=== PATIENT | female | born 1970 | race Caucasian/White ===

== ENCOUNTER 2018-01-20 08:40 | Inpatient (IN) | payer OTHER ==
[~2018-01-20] VITALS: Ht 172.7 cm; Wt 90.7 kg
--- NOTE | ~2018-01-20 | PROC ---
[address] [address] PROCEDURE REPORT Name: ASHER BERRY Room: [address] IN ..#: [id number] Admission: 01/20/18 Attend Phys: Farhat Campa Discharge: Date of : 68 Report #: [id number] THIS REPORT FOR: //name// For GI report, please see the Provation report in Perceptive 7 content. By: [id number] Records Staff [facility] /AYUSH
[~2018-01-20 08:40] MED LIST: COVARYX TABLET1 EACH PO; LEXAPRO PO; LISINOPRIL-HCT1 EAC2 PO; SYNTHROID88 MCG PO; TOPAMAX 100 MG100 MG PO; ULTRAM50 MG PO
[2018-01-20 08:48] VITALS: BP 129/90
[2018-01-20 09:14] LABS: ABSOLUTE LYMPHOCYTES 2.1 thou/uL (0.8-5.3); ABSOLUTE MONOCYTES 0.6 thou/uL (0.0-1.2); ABSOLUTE NEUTROPHILS 8.2 thou/uL (1.6-8.1); BASOPHILS 0.4 %; EOSINOPHILS 0.1 %; HEMATOCRIT 27.7 % (37.0-47.0); HEMOGLOBIN 9.6 gm/dL (12.0-15.0); LYMPHOCYTES 19.4 %; MCH 30.4 pg (26.0-34.0); MCHC 34.5 g/dL (28.0-37.0); MCV 88.2 fL (80.0-100.0); MONOCYTES 5.1 %; MPV 7.6 fl. (7.2-11.1); NUCLEATED RBCS 0 /100WBC; PLATELET COUNT* 335 thou/uL (150-400); RBC 3.14 mil/uL (4.20-5.00); WBC 10.9 thou/uL (4.0-11.0)
[2018-01-20 09:21] LABS: CALCIUM 8.6 mg/dL (8.5-10.1); CREATININE 0.8 mg/dL (0.6-1.3); POTASSIUM 4.1 mmol/L (3.5-5.1)
[2018-01-20 09:27] LABS: ALBUMIN 3.8 g/dL (3.4-5.0); TOTAL BILIRUBIN 0.3 mg/dL (<0.1-1.0); TOTAL PROTEIN 6.9 g/dL (6.4-8.2)
[2018-01-20 10:33] LABS: URINE BILIRUBIN NEGATIVE (Negative); URINE BLOOD 3+ (Negative); URINE CLARITY CLEAR; URINE COLOR YELLOW; URINE GLUCOSE-RANDOM NEGATIVE (Negative); URINE KETONES TRACE (Negative); URINE LEUKOCYTES-REFLEX NEGATIVE (Negative); URINE NITRITE-REFLEX NEGATIVE (Negative); URINE PROTEIN NEGATIVE (Negative); URINE SPECIFIC GRAVITY <= 1.005 (1.005-1.030); URINE UROBILINOGEN 0.2 E.U./dl (0.2-1.0)
[2018-01-20 10:41] LABS: AMP/METHAMP Negative (Negative); BARBITURATES POSITIVE (Negative); BENZODIAZEPINES POSITIVE (Negative); COCAINE Negative (Negative); METHADONE Negative (Negative); OPIATES POSITIVE (Negative); PCP Negative (Negative); THC Negative (Negative)
[2018-01-20 10:42] LABS: MUCUS 0-3 Light strn/LPF (None Seen); SQUAMOUS >10 Many /LPF (0-3)
[2018-01-20 10:43] LABS: BACTERIA-REFLEX 1-9 Few /HPF (None Seen); CRYSTALS None Seen /LPF (None Seen); HYALINE CASTS 0-3 Few /LPF (None Seen); URINE WBC-REFLEX 0-5 Rare /HPF (0-5)
[2018-01-20 10:44] LABS: URINE RBC 3-10 Few /HPF (0-2)
--- NOTE | 2018-01-20 11:00 | NUR ---
PT'S BEDSIDE CAMODE HAS BEEN EMPTIED AND CLEANED TWICE. STOOL SAMPLE HAS BEEN SENT TO LAB. STOOL IS BROWN/RED.
[2018-01-20 12:15] VITALS: BP 127/82
[2018-01-20 12:57] VITALS: BP 134/75
--- NOTE | 2018-01-20 13:03 | NUR ---
PATIENT CAME TO THE FLOOR FROM THER ER VIA CART. VITAL SIGNS STABLE ON ROOM AIR. ADMISSION ASSESSMENT DONE, ROOM EDUCATION AND ORIENTATION DONE, QUESTIONS ANSWERED FOR PATIENT. CALL LIGHT IS IN REACH, WILL CONTINUE TO MONITOR.
[2018-01-20 16:00] VITALS: BP 125/84
--- NOTE | 2018-01-20 17:19 | NUR ---
PATIENT HAS BEEN ALERT AND ORIENTED SINCE ARRIVING TO THE FLOOR, VITAL SIGNS STABLE ON ROOM AIR. COMPLAINTS OF HEADACHE AND ABDOMINAL PAIN. IV FLUIDS AND PROTONIX RUNNING IN LEFT AC IV. FAMILY HAS BEEN AT BEDSIDE TODAY. CALL LIGHT IS IN REACH, WILL CONTINUE TO MONITOR.
[2018-01-20 19:30] VITALS: BP 133/74
[2018-01-21 00:05] VITALS: BP 133/74
--- NOTE | 2018-01-21 04:51 | NUR ---
PATIENT REMAINS ALERT AND ORIENTED X4 THROUGHOUT SHIFT. VITAL SIGNS STABLE ON ROOM AIR. TRANSFERRING AD BEBE TO THE BEDSIDE COMMODE FOR URGENCY. REPOSITIONING SELF IN BED. IV PATENT IN THE LEFT AC INFUSING AT 125 ML/HR. PAIN MANAGED WITH PO MEDICATION PER ORDERS. DENIES NAUSEA. NPO STATUS MAINTAINED THROUGHOUT SHIFT. HOURLY ROUNDING COMPLETE. CALL LIGHT WITHIN REACH. NURSING WILL CONTINUE TO MONITOR.
[2018-01-21 07:30] VITALS: BP 141/82
[2018-01-21 11:49] LABS: HEMATOCRIT 20.7 % (37.0-47.0); MCH 30.6 pg (26.0-34.0); MCHC 33.6 g/dL (28.0-37.0); MCV 90.9 fL (80.0-100.0); MPV 7.3 fl. (7.2-11.1); NUCLEATED RBCS 0 /100WBC; RBC 2.28 mil/uL (4.20-5.00); RDW-CV 13.4 % (10.5-14.5); WBC 6.9 thou/uL (4.0-11.0)
[2018-01-21 11:56] LABS: PLATELET COUNT* 221 thou/uL (150-400)
[2018-01-21 12:07] LABS: CALCIUM 8.4 mg/dL (8.5-10.1); CREATININE 0.6 mg/dL (0.6-1.3); POTASSIUM 3.4 mmol/L (3.5-5.1)
[2018-01-21 12:24] LABS: ABSOLUTE LYMPHOCYTES 1.6 thou/uL (0.8-5.3); ABSOLUTE MONOCYTES 0.1 thou/uL (0.0-1.2); ABSOLUTE NEUTROPHILS 5.2 thou/uL (1.6-8.1)
[2018-01-21 12:26] LABS: PLATELET ESTIMATE ADEQUATE
[2018-01-21 14:17] VITALS: BP 136/78; BP 141/85; BP 146/90; BP 150/98
[2018-01-21 16:00] VITALS: BP 150/98
[2018-01-21 17:11] VITALS: BP 136/78
--- NOTE | 2018-01-21 17:41 | NUR ---
ALERT AND ORIENTED X4. UP AD BEBE IN ROOM. IV IS PATENT AND INFUSING. PAIN BEING MANAGED WITH PO PAIN MEDICATION. NAUSEA BEING MANAGED WITH IV NAUSEA MEDICATION. PATIENT HAS BEEN HAVING BLOODY STOOL THROUGHOUT SHIFT. RECIEVED 1 UNIT OF BLOOD THIS EVENING. VSS ON ROOM AIR. HOURLY ROUNDS HAVE BEEN MAINTAINED THROUGHOUT SHIFT CALL LIGHT IS WITHIN REACH. NURSING WILL CONTINUE TO MONITOR.
[2018-01-21 20:30] VITALS: BP 142/81
--- NOTE | 2018-01-22 04:29 | NUR ---
PATIENT REMAINS ALERT AND ORIENTED X4 THROUGHOUT SHIFT. VITAL SIGNS STABLE ON ROOM AIR. IV PATENT IN THE LEFT FOREARM INFUSING AT 125 ML/HR. TRANSFERS TO BEDSIDE COMMODE BY HERSELF WITH STEADY GAIT. PAIN MANAGED WITH PO MEDICATION PER ORDERED. MAUSEA MANAGED WITH IV MEDICATION ORDERED. MAINTAINED REGULAR DIET THEN NPO FOR THE REST OF THE NIGHT. RESTING COMFORTABLY THROUGHOUT NIGHT. REPOSITIOING SELF IN BED. HOURLY ROUNDING COMPELTE. BED IN LOW POSITION. CALL LIGHT WITHIN REACH. NURSING WILL CONTINUE TO MONITOR.
[2018-01-22 04:39] LABS: ABSOLUTE EOSINOPHILS 0.1 thou/uL (0.0-0.7); ABSOLUTE LYMPHOCYTES 1.8 thou/uL (0.8-5.3); ABSOLUTE MONOCYTES 0.6 thou/uL (0.0-1.2); ABSOLUTE NEUTROPHILS 5.5 thou/uL (1.6-8.1); BASOPHILS 0.4 %; EOSINOPHILS 1.3 %; HEMATOCRIT 23.3 % (37.0-47.0); HEMOGLOBIN 7.9 gm/dL (12.0-15.0); LYMPHOCYTES 22.2 %; MCHC 33.9 g/dL (28.0-37.0); MCV 91.4 fL (80.0-100.0); MONOCYTES 7.3 %; MPV 7.2 fl. (7.2-11.1); NUCLEATED RBCS 0 /100WBC; PLATELET COUNT* 210 thou/uL (150-400); POLYS 68.8 %; RBC 2.55 mil/uL (4.20-5.00); RDW-CV 13.2 % (10.5-14.5)
[2018-01-22 08:30] VITALS: BP 140/97
[2018-01-22 09:21] LABS: CALCIUM 8.3 mg/dL (8.5-10.1); CREATININE 0.6 mg/dL (0.6-1.3); POTASSIUM 3.6 mmol/L (3.5-5.1)
[2018-01-22 12:31] VITALS: BP 140/97
[2018-01-22 13:16] VITALS: BP 152/87
--- NOTE | 2018-01-22 18:33 | NUR ---
ALERT AND ORIENTED X4. UP AD BEBE IN ROOM. IV IS PATENT AND INFUSING. PAIN BEING MANAGED WITH PO MEDICATION. NAUSEA BEING MANAGED WITH IV NAUSEA MEDICATION. EGD DONE TODAY, GI SIGNED OFF ON PATIENT. VSS ON ROOM AIR. HOURLY ROUNDS HAVE BEEN MAINTAINED WHILE ON UNIT. CALL LIGHT IS WITHIN REACH. NURSING WILL CONTINUE TO MONITOR.
[2018-01-22 20:15] VITALS: BP 161/92
[2018-01-22 23:51] VITALS: BP 143/92
--- NOTE | 2018-01-23 04:51 | NUR ---
PATIENT REMAINS ALERT AND ORERIENTED X4 THROUGHOUT SHIFT. VITAL SIGNS STABLE ON ROOM AIR. IV WAS PATENT BUT WAS DISCONTINUED BY PATIENT. CALLED FOR NEW OREDERS. PO MEDICATION ORDERED AND FLUID CANCELLED. TRANSFERS AD BEBE TO THE RESTROOM. MANGED PAIN WITH PO MEDICAIION PER ORDERS. MANAGED NAUSEA WITH PO MEDICATION PER ORDERS. REPOSITIONING SELF IN BED. TOLERATING REGULAR DIET. RESTING COMFORABLY THROUGHOUT NIGHT. BED IN LOW POSITION. CALL LIGHT WITHIN REACH. NURSING WILL CONTINUE TO MONITOR.
[2018-01-23 08:30] VITALS: BP 138/87
[2018-01-23 13:35] LABS: ABSOLUTE LYMPHOCYTES 1.7 thou/uL (0.8-5.3); ABSOLUTE MONOCYTES 0.7 thou/uL (0.0-1.2); ABSOLUTE NEUTROPHILS 5.9 thou/uL (1.6-8.1); BASOPHILS 0.5 %; EOSINOPHILS 0.5 %; HEMATOCRIT 25.7 % (37.0-47.0); HEMOGLOBIN 8.8 gm/dL (12.0-15.0); LYMPHOCYTES 20.1 %; MCH 31.6 pg (26.0-34.0); MCHC 34.3 g/dL (28.0-37.0); MCV 92.1 fL (80.0-100.0); MPV 6.8 fl. (7.2-11.1); NUCLEATED RBCS 0 /100WBC; PLATELET COUNT* 293 thou/uL (150-400); POLYS 70.9 %; RBC 2.79 mil/uL (4.20-5.00); RDW-CV 13.5 % (10.5-14.5); WBC 8.3 thou/uL (4.0-11.0)
[2018-01-23 15:26] VITALS: BP 138/87
--- NOTE | 2018-01-23 15:39 | NUR ---
ASSUMED CARES OF PT AT 0700. PT IN BED ASLEEP, BED IN LOW LOCKED POSITION. CALL BUTTON AND PERSONAL ITEMS IN PT REACH. PT A&O X4, HRRR PER AUSCULTATION, LCTAB, NO IV PRESENT. SKIN INTACT. PT UP INDEPENDENTLY. VSS ON RA. PT REPORTS HEADACHE AND NAUSEA, MEDICATIONS GIVEN. NO STOOLS THIS SHIFT. DR. VERA CLEARED/GI CLEARED PT FOR DISCHARGE. DISCHARGE EDUCATION GIVEN AND DOCUMENTS SIGNED. PT STATED SHE UNDERSTANDS D/C ORDERS. PERSONAL BELONGINGS PACKED, ROOM CHECKED. PT ESCORTED WITH NURSING STAFF VIA AMBULATION TO CAR TO GO HOME WITH SPOUSE. PT STABLE AT D/C. DISCHARGE COMPLETED AT 1535.
--- NOTE | 2018-01-26 08:54 | CON ---
[address] [address] CONSULTATION Name: ASHER BERRY Room: [address] IN ..#: [id number] Admission: 01/20/18 Attend Phys: Farhat Campa Discharge: 01/23/18 Date of : 68 Report #: [id number] THIS REPORT FOR: //name// CC: Haris Perez DICTATED BY: Clarisa Quintero [facility] DATE OF SERVICE: 01/21/2018 Please note at the time of this dictation, the patient was seen and physically examined by myself. REASON FOR CONSULTATION: GI bleed. HISTORY OF PRESENT ILLNESS: This is a 47-year-old female who presented to the Emergency Room with having some abdominal pain, and worsening of her nausea and vomiting, which she states was negative for any coffee ground emesis or bright red blood; however, she has been noticing melanotic stools for the last couple of days. She was in [facility] 2 weeks ago and underwent an EGD and she was told she had a small hiatal hernia, but otherwise it was negative. She does have a history of Josefa-en-Y gastric bypass back many years ago. She states prior to a couple of days ago, her stools were brown and normal in consistency without any problems. The patient does have a long history of taking significant amounts of ibuprofen 600 mg daily for her ongoing migraines that she has. ALLERGIES: VICODIN AND ACETAMINOPHEN. MEDICATIONS: From home include tablet, lisinopril, Synthroid, and Lexapro. PAST MEDICAL HISTORY: Hypertension, migraines, history of hernias and depression. Last EGD 2 weeks ago at [facility], we will obtain those records. Chronic nausea and vomiting. PAST SURGICAL HISTORY: Josefa-en-Y surgery, hysterectomy and ACL reconstruction. FAMILY HISTORY: Negative for any GI or female cancers. SOCIAL HISTORY: She denies any tobacco or illegal drug use, but she drinks 4 beers daily. REVIEW OF SYSTEMS: Twelve-point review of systems is essentially negative except what [place] [address] CONSULTATION Name: ASHER BERRY Room: [address]#: [id number] Admission: 01/20/18 Attend Phys: Farhat Campa Discharge: 01/23/18 Date of : 68 Report #: [id number] PHYSICAL EXAMINATION: VITAL SIGNS: Temperature 37.2, pulse 93, respirations 18, blood pressure 141/82. HEART: Regular rate and rhythm. LUNGS: Clear. ABDOMEN: Soft, positive bowel sounds in all 4 quadrants with tenderness noted in the epigastric area. LABORATORY DATA: Hemoglobin on admission was 9.6. She is down to 7 with hematocrit 27.7, white count is 10.9, platelets 335. Sodium 139, potassium 4.1, chloride 104, CO2 23, BUN is 31, creatinine is 0.8, platelets is 143. GFR is 77. C. diff was negative. Iron was 230, TIBC is 275. B12 274. Folate is 17.2. The patient did test positive for opioids, barbiturates, benzos and negative for any marijuana. CT of the abdomen and pelvis, normal liver, gallbladder is absent consistent with a history of gastric bypass surgery, otherwise negative. IMPRESSION: 1. Chronic nausea and vomiting. 2. Melenic stools. 3. Acute anemia. 4. Thrombocytopenia. 5. Chronic nonsteroidal antiinflammatory drug use. 6. Migraines question cyclical vomiting syndrome. 7. Alcohol misuse. PLAN: 1. EGD tomorrow with Dr. Romano. 2. Obtain records from [facility] regarding her previous EGD. 3. Continue her Protonix drip. 4. Type and cross the patient for 2 units and give her 1 now. 5. If EGD negative tomorrow, likely will need a small bowel capsule that will need to be placed due to her previous surgery. Thank you for allowing us to participate in this patient's care. Please do not hesitate to call with any questions in regard to this consult. ADDENDUM I have personally seen and examined the patient and reviewed labs and imaging. The patient with history of migraines who also has chronic NSAID use due to the same. She presented with melanotic stool and nausea and vomiting. She had upper scope two weeks ago, which was significant for Josefa-en-Y surgery, but otherwise negative for any kind of upper GI source of bleeding. Her hemoglobin since admission has dropped from 9.6 to 7.3. We will go ahead and perform an [address] [place] [address] CONSULTATION Name: ASHER BERRY Room: [address] IN M.R.#: [id number] Admission: 01/20/18 Attend Phys: Farhat Campa Discharge: 01/23/18 Date of : 68 Report #: [id number] upper scope and if this was negative, we will consider a capsule endoscopy and colonoscopy. Meanwhile, we will check iron, B12 and folic acid levels. <ELECTRONICALLY SIGNED> By: Alida Romano MD 01/26/18 0854 1211 1926Alida Romano MD /nt
--- NOTE | 2018-01-26 08:55 | CON ---
[address] [address] CONSULTATION Name: ASHER BERRY Room: [address] IN .R.#: [id number] Admission: 01/20/18 Attend Phys: Farhat Campa Discharge: 01/23/18 Date of : 68 Report #: [id number] THIS REPORT FOR: //name// CC: Haris Perez DATE OF SERVICE: 01/21/2018 ADDENDUM I have personally seen and examined the patient and reviewed labs and imaging. The patient with history of migraines who also has chronic NSAID use due to the same. She presented with melanotic stool and nausea and vomiting. She had upper scope two weeks ago, which was significant for Josefa-en-Y surgery, but otherwise negative for any kind of upper GI source of bleeding. Her hemoglobin since admission has dropped from 9.6 to 7.3. We will go ahead and perform an upper scope and if this was negative, we will consider a capsule endoscopy and colonoscopy. Meanwhile, we will check iron, B12 and folic acid levels. <ELECTRONICALLY SIGNED> By: Alida Romano MD 01/26/18 0855 1536 [id number] Romano MD /nt
--- NOTE | 2018-01-26 18:09 | PATH ---
[facility] [address] [place] [address] PATHOLOGY RPT PROCEDURE Name: MORIAH HUGHES Room: [address] IN ..#: [id number] Admission: 01/20/18 Date of : 68 Discharge: 01/23/18 Report #: [id number] Path Case #: [id number] [facility] Accession Number: [id number] . 01 Material submitted: . ANASTOMATIC ULCER BIOPSY . 01 Clinical history: . Gastric bypass surgery . 02 Diagnosis: Anastomotic ulcer biopsy: - Benign small intestinal and gastric types mucosa with minimal nonspecific chronic inflammation. (ENMANUEL:pamela; 01/23/2018) QMS/01/23/2018 . 02 Electronically signed: . Jeffrey Aleman MD, Pathologist NPI- [id number] . 01 Gross description: . Received in formalin labeled "Moriah Hughes, anastomotic ulcer biopsy," is a single segment of good soft tissue measuring 0.4 cm in maximum dimension. The specimen is submitted entirely in cassette A1. (TSD; 01/22/2018) TOB/TOB . 02 Pathologist provided ICD-10: K29.50 . 02 CPT . 975880 Performed at: [address], [place] [id number] MD Dereck Sosa MD Phone: [phone] Performed at: [address] [address] [place], [place] [id number] MD Jeffrey Aleman MD Phone: [phone]
== END 2018-01-23 15:35 | disposition home or self-care (01) | DRG 811 ==
LOC: M.ERS 08:40 → M.ORTHSURG 12:06 → M.TBA-ER 12:06 → M.ORTHSURG 12:20
PROVIDERS: Internal Medicine; Nurse Practitioner Adult Health; Personal Emergency Response Attendant; ADMIT Internal Medicine
PROC: 30233N1 Transfusion of Nonautologous Red Blood Cells into Peripheral Vein, Percutaneous Approach (ICD-10-PCS; principal; 2018-01-21)
PROC: 0DB68ZX Excision of Stomach, Via Natural or Artificial Opening Endoscopic, Diagnostic (ICD-10-PCS; 2018-01-22)
DX: D62 Acute posthemorrhagic anemia (principal); K25.0 Acute gastric ulcer with hemorrhage; I10 Essential (primary) hypertension; D69.6 Thrombocytopenia, unspecified; G43.801 Other migraine, not intractable, with status migrainosus; K44.9 Diaphragmatic hernia without obstruction or gangrene; Z90.710 Acquired absence of both cervix and uterus; Z88.6 Allergy status to analgesic agent; Z88.8 Allergy status to other drugs, medicaments and biological substances; Z79.1 Long term (current) use of non-steroidal anti-inflammatories (NSAID); Z79.899 Other long term (current) drug therapy

== ENCOUNTER 2018-06-05 16:10 | Emergency (ER) | payer OTHER ==
[~2018-06-05] VITALS: Ht 172.7 cm; Wt 97.5 kg
[2018-06-05] MEDS ORDERED: SEROQUEL 100 M100 M1 PO (16:21)
[2018-06-05] MEDS ORDERED: XANAX1 MG PO (16:21)
[2018-06-05] MEDS ORDERED: LYRICA 50 MG50 MG PO (16:21)
[2018-06-05 16:33] LABS: ABSOLUTE EOSINOPHILS 0.1 thou/uL (0.0-0.7); ABSOLUTE LYMPHOCYTES 1.8 thou/uL (0.8-5.3); ABSOLUTE MONOCYTES 0.5 thou/uL (0.0-1.2); ABSOLUTE NEUTROPHILS 2.4 thou/uL (1.6-8.1); BASOPHILS 0.6 %; EOSINOPHILS 2.4 %; HEMATOCRIT 28.3 % (37.0-47.0); HEMOGLOBIN 8.8 gm/dL (12.0-15.0); LYMPHOCYTES 36.2 %; MCH 23.8 pg (26.0-34.0); MCHC 31.3 g/dL (28.0-37.0); NUCLEATED RBCS 0 /100WBC; PLATELET COUNT* 374 thou/uL (150-400); POLYS 49.8 %; RBC 3.72 mil/uL (4.20-5.00); RDW-CV 23.7 % (10.5-14.5); WBC 4.9 thou/uL (4.0-11.0)
[2018-06-05 16:41] LABS: CALCIUM 8.2 mg/dL (8.5-10.1); CREATININE 0.9 mg/dL (0.6-1.3); POTASSIUM 3.8 mmol/L (3.5-5.1)
[2018-06-05 16:45] LABS: TOTAL BILIRUBIN 0.1 mg/dL (<0.1-1.0); TOTAL PROTEIN 5.8 g/dL (6.4-8.2)
[2018-06-05 16:50] LABS: SALICYLATE 3.3 mg/dL (2.8-20.0)
[2018-06-05 16:52] LABS: URINE BILIRUBIN NEGATIVE (Negative); URINE BLOOD NEGATIVE (Negative); URINE CLARITY CLEAR; URINE COLOR YELLOW; URINE GLUCOSE-RANDOM NEGATIVE (Negative); URINE KETONES NEGATIVE (Negative); URINE LEUKOCYTES-REFLEX NEGATIVE (Negative); URINE NITRITE-REFLEX NEGATIVE (Negative); URINE PROTEIN NEGATIVE (Negative); URINE SPECIFIC GRAVITY <= 1.005 (1.005-1.030); URINE UROBILINOGEN 0.2 E.U./dl (0.2-1.0)
[2018-06-05 16:57] LABS: ANISOCYTOSIS 1+; PLATELET ESTIMATE ADEQUATE
[2018-06-05 17:01] LABS: AMP/METHAMP Negative (Negative); BARBITURATES POSITIVE (Negative); BENZODIAZEPINES POSITIVE (Negative); COCAINE Negative (Negative); METHADONE Negative (Negative); OPIATES Negative (Negative); PCP Negative (Negative); THC Negative (Negative)
[2018-06-05 17:40] VITALS: BP 96/51
[2018-06-05] MEDS ORDERED: ZESTORETIC 10-1 EACH (22:03)
[2018-06-05] MEDS ORDERED: LEXAPRO 10 MG T10 M1 (22:05)
[2018-06-05] MEDS ORDERED: BUTALB-APAP-CA1 EACH PO (22:06)
[2018-06-05] MEDS ORDERED: ESTROGEN-METHY1 EAC3 (22:08)
[2018-06-05] MEDS ORDERED: REXULTI1 MG (22:09)
[2018-06-05] MEDS ORDERED: ONDANSETRON HCL4 M2 (22:10)
[2018-06-05] MEDS ORDERED: PROTONIX 20 MG20 M1 PO (22:11)
--- NOTE | 2018-06-06 10:16 | EKG ---
[place] [address] ELECTROCARDIOGRAM REPORT Name: ASHER BERRY Room: [facility]#: [id number] Admission: 06/05/18 Attend Phys: Discharge: 06/05/18 Date of : 68 Report #: [id number] THIS REPORT FOR: //name// [facility] ED Test Date: 2018-06-05 Test Time: 16:17:54 Pat Name: ASHER BERRY Department: Room: Gender: F Posting Specialist: Benson CURRY : 1970 Requested By: Shukri Banks Order Number: [id number] MD: Cesar Arthur Measurements Intervals [place] Rate: 62 P: 2 MA: 159 QRS: 0 QRSD: 108 T: 24 QT: 495 QTc: 503 Interpretive Statements Sinus rhythm Borderline prolonged QT interval No previous ECG available for comparison Electronically Signed On 06-06-2018 10:16:30 CDT by Cesar Arthur [email or web address] <ELECTRONICALLY SIGNED> By: Cesar Arthur MD, [facility] 06/06/18 1016 1617 1617 Cesar Arthur MD, FACC /EPI
== END 2018-06-05 17:40 | disposition short-term general hospital (02) ==
LOC: M.ERS 16:10
PROVIDERS: Emergency Medicine Emergency Medical Services
DX: T42.4X1A Poisoning by benzodiazepines, accidental (unintentional), initial encounter (principal); Y92.9 Unspecified place or not applicable; I10 Essential (primary) hypertension; G43.909 Migraine, unspecified, not intractable, without status migrainosus; F32.9 Major depressive disorder, single episode, unspecified; Z90.710 Acquired absence of both cervix and uterus

== ENCOUNTER 2019-05-21 16:14 | Inpatient (IN) | payer OTHER ==
[~2019-05-21] VITALS: Ht 172.7 cm; Wt 103.2 kg
--- NOTE | ~2019-05-21 | PROC ---
[address] [address] PROCEDURE REPORT Name: ASHER BERRY Room: [address] IN M.R.#: [id number] Admission: 05/21/19 Attend Phys: Paulo willard [place] Discharge: 05/24/19 Date of : 68 Report #: [id number] THIS REPORT FOR: //name// For GI report, please see the Provation report in Perceptive 7 content. By: [facility]8Medical Records Staff [facility] /AYUSH
--- NOTE | ~2019-05-21 | PROC ---
[address] [address] PROCEDURE REPORT Name: ASHER BERRY Room: [address] IN M.R.#: [id number] Admission: 05/21/19 Attend Phys: Paulo willard [place] Discharge: 05/24/19 Date of : 68 Report #: [id number] THIS REPORT FOR: //name// For GI report, please see the Provation report in Perceptive 7 content. By: [facility]7Medical Records Staff [facility] /AYUSH
[~2019-05-21 16:14] MED LIST changes: +BUTALB-APAP-CA1 EACH PO; +ESTROGEN-METHY1 EAC3; +LEXAPRO 10 MG T10 M1; +LYRICA 50 MG50 MG PO; +ONDANSETRON HCL4 M2; +PROTONIX 20 MG20 M1 PO; +REXULTI1 MG; +SEROQUEL 100 M100 M1 PO; +XANAX1 MG PO; +ZESTORETIC 10-1 EACH
[2019-05-21 16:49] VITALS: BP 102/63
[2019-05-21 16:54] LABS: ABSOLUTE EOSINOPHILS 0.1 thou/uL (0.0-0.7); ABSOLUTE LYMPHOCYTES 2.4 thou/uL (0.8-5.3); ABSOLUTE MONOCYTES 0.8 thou/uL (0.0-1.2); ABSOLUTE NEUTROPHILS 4.6 thou/uL (1.6-8.1); BASOPHILS 0.5 %; EOSINOPHILS 0.9 %; MCH 28.1 pg (26.0-34.0); MCHC 32.2 g/dL (28.0-37.0); MCV 87.4 fL (80.0-100.0); MONOCYTES 9.7 %; MPV 7.5 fl. (7.2-11.1); NUCLEATED RBCS 0 /100WBC; PLATELET COUNT* 348 thou/uL (150-400); POLYS 57.9 %; RBC 1.85 mil/uL (4.20-5.00); RDW-CV 15.6 % (10.5-14.5); WBC 7.9 thou/uL (4.0-11.0)
[2019-05-21 16:58] LABS: HEMOGLOBIN 5.2 gm/dL (12.0-15.0)
[2019-05-21 16:59] LABS: HEMATOCRIT 16.2 % (37.0-47.0)
[2019-05-21] MEDS ORDERED: IRON325 (17:03)
[2019-05-21 17:26] LABS: CALCIUM 8.3 mg/dL (8.5-10.1); CREATININE 0.9 mg/dL (0.6-1.3); POTASSIUM 4.1 mmol/L (3.5-5.1)
[2019-05-21 17:27] LABS: ALBUMIN 2.8 g/dL (3.4-5.0); MAGNESIUM 1.7 mg/dL (1.8-2.4); TOTAL BILIRUBIN 0.2 mg/dL (<0.1-1.0); TOTAL PROTEIN 5.6 g/dL (6.4-8.2)
[2019-05-21 17:44] LABS: APTT 22.1 Seconds (25.0-31.3)
[2019-05-21 20:30] VITALS: BP 113/58
[2019-05-21 20:52] VITALS: BP 119/65
[2019-05-21 21:39] VITALS: BP 100/68; BP 105/63; BP 107/69; BP 99/58
[2019-05-22] VITALS (9 sets, daily range): BP systolic 100–142; BP diastolic 53–89
[2019-05-22 02:16] LABS: MCH 29.3 pg (26.0-34.0); MCHC 33.6 g/dL (28.0-37.0); MCV 87.2 fL (80.0-100.0); MPV 7.4 fl. (7.2-11.1); RBC 1.8 mil/uL (4.20-5.00); RDW-CV 15.3 % (10.5-14.5); WBC 6.4 thou/uL (4.0-11.0)
[2019-05-22 02:18] LABS: HEMATOCRIT 15.7 % (37.0-47.0); HEMOGLOBIN 5.3 gm/dL (12.0-15.0)
[2019-05-22 02:21] LABS: CALCIUM 7.7 mg/dL (8.5-10.1); CREATININE 0.6 mg/dL (0.6-1.3); MAGNESIUM 1.7 mg/dL (1.8-2.4); POTASSIUM 4.1 mmol/L (3.5-5.1)
[2019-05-22 02:31] LABS: % SATURATION 50 % (20-39); IRON 117 ug/dL (50-175)
[2019-05-22 08:02] LABS: HEMATOCRIT 18.6 % (37.0-47.0); HEMOGLOBIN 6.4 gm/dL (12.0-15.0)
--- NOTE | 2019-05-22 10:04 | EKG ---
[place] [address] ELECTROCARDIOGRAM REPORT Name: ASHER BERRY Room: [address] ADM IN [facility].#: [id number] Admission: 05/21/19 Attend Phys: Paulo Grimes Discharge: Date of : 68 Report #: [id number] THIS REPORT FOR: //name// [facility] ED Test Date: 2019-05-21 Test Time: 16:42:26 Pat Name: ASHER BERRY Department: Room: [facility] Gender: F Filament Maker: KF : 1970 Requested By: Loraine Sequeira Order Number: [id number] MD: Cesar Arthur Measurements Intervals [place] Rate: 112 P: 10 WA: 139 QRS: 8 QRSD: 98 T: 121 QT: 325 QTc: 444 Interpretive Statements Sinus tachycardia Nonspecific T abnormalities, lateral leads Compared to ECG 06/05/2018 16:17:54 Sinus rhythm no longer present Electronically Signed On 05-22-2019 10:03:58 CDT by Cesar Arthur [email or web address] <ELECTRONICALLY SIGNED> By: Cesar Arthur MD, [facility] 05/22/19 1003 164 41 Cesar Arthur MD, [facility] /EPI
[2019-05-22 14:25] LABS: HEMATOCRIT 22.5 % (37.0-47.0); HEMOGLOBIN 7.8 gm/dL (12.0-15.0)
[2019-05-22 18:21] LABS: URINE BILIRUBIN NEGATIVE (Negative); URINE BLOOD NEGATIVE (Negative); URINE CLARITY CLEAR; URINE COLOR YELLOW; URINE GLUCOSE-RANDOM NEGATIVE (Negative); URINE KETONES 1+ (Negative); URINE LEUKOCYTES-REFLEX NEGATIVE (Negative); URINE NITRITE-REFLEX NEGATIVE (Negative); URINE PROTEIN NEGATIVE (Negative); URINE SPECIFIC GRAVITY <= 1.005 (1.005-1.030); URINE UROBILINOGEN 0.2 E.U./dl (0.2-1.0)
[2019-05-23] VITALS (12 sets, daily range): BP systolic 104–144; BP diastolic 53–84
[2019-05-23 03:07] LABS: GLYCOHEMOGLOBIN (HGB A1C) 5.1 % (4.8-5.6)
[2019-05-23 15:51] LABS: HEMATOCRIT 20.2 % (37.0-47.0); MCH 30.6 pg (26.0-34.0); MCHC 33.8 g/dL (28.0-37.0); MCV 90.6 fL (80.0-100.0); MPV 7.7 fl. (7.2-11.1); NUCLEATED RBCS 0 /100WBC; PLATELET COUNT* 264 thou/uL (150-400); RBC 2.23 mil/uL (4.20-5.00); RDW-CV 15.3 % (10.5-14.5); WBC 9.2 thou/uL (4.0-11.0)
[2019-05-23 16:00] LABS: HEMOGLOBIN 6.8 gm/dL (12.0-15.0)
[2019-05-23 16:43] LABS: ABSOLUTE EOSINOPHILS 0.4 thou/uL (0.0-0.7); ABSOLUTE LYMPHOCYTES 1.7 thou/uL (0.8-5.3); ABSOLUTE MONOCYTES 0.6 thou/uL (0.0-1.2); ABSOLUTE NEUTROPHILS 6.5 thou/uL (1.6-8.1)
[2019-05-23 16:44] LABS: PLATELET ESTIMATE ADEQUATE
[2019-05-23 16:45] LABS: ANISOCYTOSIS 1+
[2019-05-23 21:44] LABS: HEMATOCRIT 20.4 % (37.0-47.0)
[2019-05-24] VITALS: BP 116/65
[2019-05-24 04:00] VITALS: BP 140/82
[2019-05-24 04:37] LABS: HEMATOCRIT 20.6 % (37.0-47.0); HEMOGLOBIN 7.1 gm/dL (12.0-15.0)
[2019-05-24 07:45] VITALS: BP 136/79
[2019-05-24] MEDS ORDERED: PROTONIX40 M1 PO (09:48)
[2019-05-24 09:53] VITALS: BP 140/82
--- NOTE | 2019-05-26 14:03 | CON ---
[address] [address] CONSULTATION Name: ASHER BERRY Room: [address]#: [id number] Admission: 05/21/19 Attend Phys: Paulo Grimes Discharge: 05/24/19 Date of : 68 Report #: [id number] THIS REPORT FOR: //name// CC: [place] physician/PCP Paulo Pickering DATE OF SERVICE: 05/22/2019 REASON FOR CONSULT: Acute anemia. HISTORY OF PRESENT ILLNESS: This is a 48-year-old female with history of gastric bypass surgery who last had an EGD back in 12/2017 with erosions in the anastomotic site due to her history of gastric bypass surgery, Josefa-en-Y. Her last colonoscopy was in [facility] 2 years prior. She reports that she was weak and lost consciousness, which prompted her to come to the hospital. Upon hospitalization, she was found to have hemoglobin of 6.8. Her iron saturation was 50% and her BUN and creatinine ratio was more than 30. The patient denies any anticoagulation therapy, but reports that she takes about 6-7 ibuprofens per week. PAST MEDICAL HISTORY: Significant for: 1. History of gallbladder disease, status post cholecystectomy. 2. History of Josefa-en-Y. 3. Hysterectomy. 4. ACL repair. 5. History of peptic ulcer disease. 6. History of iron deficiency. ALLERGIES: No known drug allergy. MEDICATIONS: The patient takes a PPI at home. PHYSICAL EXAMINATION: VITAL SIGNS: Reveals blood pressure of 114/71, respirations 20, pulse is 95, temperature 99.3. LUNGS: Clear. CARDIOVASCULAR: Regular. ABDOMEN: Soft, nontender, nondistended. Bowel sounds are positive. NEUROLOGIC: The patient is alert, oriented x 3. There is no focal neurologic deficit. IMAGING: The patient had CT of the head due to her syncopal episode, which was mainly due to acute drop in her hemoglobin. Her CT of the head was essentially unremarkable. ASSESSMENT AND PLAN: The patient with history of colonoscopy 2 [place] [address] CONSULTATION Name: ASHER BERRY Room: [address]#: [id number] Admission: 05/21/19 Attend Phys: Paulo Grimes Discharge: 05/24/19 Date of : 68 Report #: [id number] history of upper gastrointestinal bleed due to anastomotic erosion at the site of gastrojejunal anastomosis a year ago. We will perform her upper endoscopy. Meanwhile, she is on proton pump inhibitors and we transfuse her with 2 units of packed RBC. <ELECTRONICALLY SIGNED> By: Alida Romano MD 05/26/19 1403 1042 [id number] Audi Romano MD /nt
== END 2019-05-24 10:50 | disposition home or self-care (01) | DRG 812 ==
LOC: M.ERS 16:14 → M.2W 18:45 → M.TBA-ER 18:45 → M.2W 20:25
PROVIDERS: Internal Medicine; Internal Medicine Gastroenterology; Nurse Practitioner Family; Personal Emergency Response Attendant; ADMIT Family Medicine
PROC: 30233N1 Transfusion of Nonautologous Red Blood Cells into Peripheral Vein, Percutaneous Approach (ICD-10-PCS; principal; 2019-05-21)
PROC: 0DJ08ZZ Inspection of Upper Intestinal Tract, Via Natural or Artificial Opening Endoscopic (ICD-10-PCS; 2019-05-22)
PROC: 0DJD8ZZ Inspection of Lower Intestinal Tract, Via Natural or Artificial Opening Endoscopic (ICD-10-PCS; 2019-05-23)
DX: D62 Acute posthemorrhagic anemia (principal); K92.2 Gastrointestinal hemorrhage, unspecified; E44.1 Mild protein-calorie malnutrition; R55 Syncope and collapse; I10 Essential (primary) hypertension; F32.9 Major depressive disorder, single episode, unspecified; G43.909 Migraine, unspecified, not intractable, without status migrainosus; F41.9 Anxiety disorder, unspecified; E83.42 Hypomagnesemia; R73.9 Hyperglycemia, unspecified; S09.90XA Unspecified injury of head, initial encounter; Z90.49 Acquired absence of other specified parts of digestive tract; Z90.710 Acquired absence of both cervix and uterus; Z68.34 Body mass index [BMI] 34.0-34.9, adult; Z79.899 Other long term (current) drug therapy; Z91.040 Latex allergy status; Z98.84 Bariatric surgery status; Z87.11 Personal history of peptic ulcer disease